=== PATIENT | male | born 1975 | race Caucasian/White ===

== ENCOUNTER 2018-05-04 11:21 | Emergency (ER) | payer MEDICAID ==
[~2018-05-04] VITALS: Ht 175.3 cm; Wt 84.1 kg
[2018-05-04 11:37] VITALS: BP 138/75; Ht 175.3 cm; Wt 84.1 kg
[2018-05-04 12:26] LABS: BASOPHILS 0.7 % (0-2); EOSINOPHILS 6.4 % (0-7); HEMATOCRIT 47.6 % (42.0-54.0); HEMOGLOBIN 16.2 g/dL (13.5-17.5); IMMATURE GRANULOCYTES 0.2 % (0-5); LYMPHOCYTES 24.4 % (15-50); MCV 91.2 fL (80.0-100.0); MEAN PLATELET VOLUME 10.9 fL (7.4-10.4); MONOCYTES 13.3 % (2-11); PLATELET COUNT 163 10x3/uL (130-400); RBC 5.22 10x6/uL (4.20-6.10); RDW 13.3 % (11.5-14.5); WBC 5.8 10x3/uL (4.8-10.8)
[2018-05-04 12:34] LABS: ALBUMIN 3.4 g/dL (3.4-5.0); ANION GAP 11.9 mmol/L (8-16); BILIRUBIN - TOTAL 0.6 mg/dL (0.2-1.3); CALCIUM 8.5 mg/dL (8.5-10.1); CARBON DIOXIDE 27.5 mmol/L (21.0-32.0); CREATININE - SERUM 1.2 mg/dL (0.6-1.3); POTASSIUM - SERUM 3.4 mmol/L (3.5-5.1); PROTEIN - SERUM 6.9 g/dL (6.4-8.2)
[2018-05-04 12:59] LABS: APPEARANCE CLEAR (CLEAR); BILIRUBIN NEGATIVE (NEGATIVE); COLOR DK YELLOW (YELLOW); GLUCOSE NEGATIVE (NEGATIVE); KETONE NEGATIVE (NEGATIVE); NITRITE NEGATIVE (NEGATIVE); PROTEIN TRACE mg/dL (NEGATIVE); SPECIFIC GRAVITY 1.025 (1.005-1.020)
[2018-05-04 13:00] LABS: BACTERIA FEW /hpf (NONE SEEN); CALCIUM OXALATE CRYSTALS 0-5 /hpf (NONE SEEN); EPITHELIAL CELLS 0-5 /hpf (0-5); MUCUS >1+ /lpf (NONE SEEN); RED CELLS - URINE 0-5 /hpf (0-5); WHITE CELLS - URINE 0-5 /hpf (0-5)
== END 2018-05-04 12:28 | disposition left against medical advice (07) ==
LOC: D.ER 11:21
PROVIDERS: Family Medicine
DX: R11.2 Nausea with vomiting, unspecified (principal)

== ENCOUNTER 2020-05-14 06:41 | Day surgery (SDC) | payer MEDICAID ==
[2018-05-04 11:37] VITALS: BMI 27.3
--- NOTE | 2020-05-14 08:53 | NUR ---
0815 PT NOT UNDRESSED, STANDING TWIDDLEING THUMBS, SPEAKING TO HIS SISTER SAYING "I DON'T WANT TO HAVE THIS DONE." WHEN I ASKED HIM IF HE WANTED SURGERY? HE RESPONDED, "NO, I REALLY DON'T". HIS SISTER TAKLING TO HIM, ATTEMPTING TO TALK HIM INTO THE SURGERY. I GAVE HIM THE OPTION OF HAVING THE SURGERY OR NOT DEPENDING ON THE RECOMMENDATION OF HIS SURGEON. 0830 HIS SISTER CAME TO THE DESK STATING HE HAS DECIDED TO HAVE THE SURGERY. 0835 UPON ENTERING THE ROOM, THE PT. WAS STILL UNDRESSED, SITTING IN A CHAIR, STATES HE HAS DECIDED NOT TO HAVE THE SURGERY TODAY. I INFORMED HIM TO CALL HIS SURGEON WHEN HE IS READY TO HAVE THE SURGERY. THE PT AND HIS SISTER LEFT AMBULATORY.
== END 2020-05-14 08:37 | disposition home or self-care (01) ==
LOC: D.OPS 06:41
PROVIDERS: ATTEND Surgery
DX: K40.20 Bilateral inguinal hernia, without obstruction or gangrene, not specified as recurrent (principal); Z53.9 Procedure and treatment not carried out, unspecified reason